=== PATIENT | female | born 1990 | race Caucasian/White ===

== ENCOUNTER 2020-06-29 16:51 | Outpatient (CLI) | payer OTHER | END 2020-06-29 16:52 | disposition home or self-care (01) | LOC: CSHRAD 16:51 | PROVIDERS: ATTEND Family Medicine | DX: R10.33 Periumbilical pain (principal); R19.7 Diarrhea, unspecified; R11.2 Nausea with vomiting, unspecified; R19.07 Generalized intra-abdominal and pelvic swelling, mass and lump | CPT/HCPCS: 74019 ==